=== PATIENT | male | born 1970 | race Caucasian/White ===

== ENCOUNTER 2018-07-22 14:03 | Emergency (ER) | payer BC, MEDICAID ==
[2018-07-22 14:38] VITALS: BP 194/83
[2018-07-22] MEDS ORDERED: PENICILLIN V POTASSIUM 500 MG TABLET PO ONE (15:15)
--- NOTE | 2018-07-22 15:18 | ER Document Report ---
HPI - HPI Patient complains to provider of: sinus congestion Onset: Other - few days Pain Level: 2 Context: 48 yo morbidly obese male c/o sinus congestion, pain for several days. No fever or cough. no chest pain or sob. Associated Symptoms: None Exacerbated by: Denies Relieved by: Denies Similar symptoms previously: Yes Recently seen / treated by doctor: No - ROS ROS below otherwise negative: Yes Systems Reviewed and Negative: Yes All other systems reviewed and negative Past Medical History - General Information source: Patient - Social History Smoking Status: Never Smoker Lives with: Spouse/Significant other Family History: Reviewed & Not Pertinent Patient has suicidal ideation: No Patient has homicidal ideation: No - Past Medical History Cardiac Medical History: Reports: Hx Hypertension - was on BP meds with a diuretic, but it made him go to the bathroom Renal/ Medical History: Denies: Hx Peritoneal Dialysis Psychiatric Medical History: Reports: Hx Depression Past Surgical History: Reports: Hx Appendectomy, Hx Orthopedic Surgery - Immunizations Hx Diphtheria, Pertussis, Tetanus Vaccination: Yes Vertical Provider Document - CONSTITUTIONAL Agree With Documented VS: Yes Exam Limitations: No Limitations General Appearance: No Apparent Distress - INFECTION CONTROL TRAVEL OUTSIDE OF THE [place] IN LAST 30 DAYS: No - HEENT HEENT: Dental Injury - multiple decayed teeth to inflamed gingiva. non tender sinu, nares patent., Normocephalic. negative: Pharyngeal Erythema, Tympanic Membrane Red - NECK Neck: Supple. negative: Lymphadenopathy-Left, Lymphadenopathy-Right - RESPIRATORY Respiratory: Breath Sounds Normal, No Respiratory Distress - CARDIOVASCULAR Cardiovascular: Regular Rate Pulses: Bounding: Popliteal - NEURO Level of Consciousness: Awake Course - Vital Signs Vital signs: Temp Pulse Resp BP Pulse Ox 97.8 F 78 18 194/83 H 95 07/22/18 14:37 07/22/18 14:37 07/22/18 14:37 07/22/18 14:37 07/22/18 14:37 Discharge - Discharge Clinical Impression: Dental decay and gingivitis Condition: Good Disposition: HOME, SELF-CARE Instructions: Acetaminophen, Dentist, Dental Infection or Abscess (OM), Ibuprofen (General) ([facility]), Penicillin V K ([facility]) Additional Instructions: See the dentist Penicillin 4 times a day until it is gone Return to the emergency room for any fever chills increased pain or swelling Prescriptions: Ibuprofen [Motrin 600 mg Tablet] 600 mg PO Q8HP PRN #30 tablet PRN Reason: Penicillin V Potassium [Penicillin Vk 500 mg Tablet] 500 mg PO QID #40 tablet
== END 2018-07-22 15:20 | disposition home or self-care (01) ==
LOC: ER 14:03
DX: K05.10 Chronic gingivitis, plaque induced (principal); K02.9 Dental caries, unspecified; I10 Essential (primary) hypertension
CPT/HCPCS: 99283